=== PATIENT | female | born 1995 | race Caucasian/White ===

== ENCOUNTER 2018-03-07 02:25 | Emergency (ER) | payer OTHER ==
[~2018-03-07] VITALS: Ht 157.5 cm; Wt 52.2 kg
[2018-03-07 02:31] VITALS: BP 132/75
--- NOTE | 2018-03-07 02:36 | NUR ---
PT.AMBULATED TO ER BED 12
--- NOTE | 2018-03-07 03:00 | NUR ---
22/ CAME IN W C/O N/V X3 SINCE 2099 LAST NIGHT. DENIES ANY ABD PAIN, DIARRHEA, DENIES FEVER/CHILLS. ABD SOFT, ROUND, -TENDERNESS. PMH: EAR INFECTION, RX: CIPROFLAXACIN STARTED LAST SATURDAY
[2018-03-07] MEDS ORDERED: ONDANSETRON 4 MG ODT PO ONE ×2 (03:10→03:30)
[2018-03-07] MEDS ORDERED: DICYCLOMINE HCL LIQUID 20 MG, ALUMINUM HYD/MAG/SIMETHICONE 30 ML, LIDOCAINE VISCOUS 2% ... PO ONE ×3 (03:10)
--- NOTE | 2018-03-07 03:50 | NUR ---
NO FURTHER N/V NOTED/REPORTED
[2018-03-07 04:28] VITALS: BP 118/66
--- NOTE | 2018-03-07 04:28 | NUR ---
Patient discharged with v/s stable. Written and verbal after care instructions given and explained. Patient alert, oriented and verbalized understanding of instructions. Ambulatory with steady gait. All questions addressed prior to discharge. ID band removed. Patient advised to follow up with PMD. Rx of SETH LIRA given. Patient educated on indication of medication including possible reaction and side effects. Opportunity to ask questions provided and answered.
== END 2018-03-07 04:28 | disposition home or self-care (01) ==
LOC: MED 02:25
DX: R11.12 Projectile vomiting (principal); R10.13 Epigastric pain; J45.909 Unspecified asthma, uncomplicated
CPT/HCPCS: 81002; 81025; 99284; S0119

== ENCOUNTER 2018-03-19 22:47 | Emergency (ER) | payer OTHER ==
[~2018-03-19] VITALS: Ht 157.5 cm; Wt 54.2 kg
[2018-03-19 22:53] VITALS: BP 130/72
[2018-03-19] MEDS ORDERED: NACL 0.9% 1,000 ML IV SCH (23:31)
[2018-03-19] MEDS ORDERED: ONDANSETRON 4 MG/2 ML VIAL IVP ONE (23:35)
[2018-03-19 23:48] LABS: BASOPHILS % (AUTO) 0.4 % (0.0-2.0); EOSINOPHILS # (AUTO) 0.1 K/uL (0-0.4); EOSINOPHILS % (AUTO) 0.9 % (0.0-4.0); HEMOGLOBIN 13.7 g/dL (12.0-16.0); LYMPHOCYTES # (AUTO) 1.4 K/uL (2.5-16.5); MEAN CORPUSCULAR HEMOGLOBIN 30 pg (27-31); MEAN CORPUSCULAR HGB CONC 34 g/dL (33-37); MEAN CORPUSCULAR VOLUME 88.3 fL (80-94); MONOCYTES # (AUTO) 0.7 K/uL (0.8-1.0); MONOCYTES % (AUTO) 7.8 % (1.7-9.3); NEUTROPHILS # (AUTO) 6.7 K/uL (1.8-7.7); NEUTROPHILS % (AUTO) 74.9 % (42.2-75.2); PLATELET COUNT (AUTO) 204 K/uL (140-450); RED BLOOD CELL COUNT(AUTO) 4.65 MIL/uL (4.20-5.40); RED CELL DISTRIBUTION WIDTH 12.4 % (11.6-13.7)
[2018-03-19 23:48] LABS: APPEARANCE,URINE CLEAR (CLEAR); BILIRUBIN,URINE NEGATIVE (NEGATIVE); BLOOD, URINE TRACE-I (NEGATIVE); COLOR,URINE YELLOW (YELLOW); LEUKOCYTE ESTERASE ,URINE NEGATIVE (NEGATIVE); NITRITE, URINE NEGATIVE (NEGATIVE); PH,URINE 5.5 (5.0-9.0); UGLUCOSE NEGATIVE (NEGATIVE)
[2018-03-20 00:02] LABS: RBC,URINE 0-5 (RARE) /HPF (0-5); WBC,URINE NONE SEEN /HPF (0-5)
[2018-03-20 00:03] LABS: ALBUMIN 4.2 g/dL (3.4-5.0); ANION GAP 13.6 (8-16); CARBON DIOXIDE 25.8 mmol/L (21-32); CREATININE 0.6 mg/dL (0.6-1.3); POTASSIUM 3.4 mmol/L (3.5-5.1); TOTAL BILIRUBIN 0.3 mg/dL (0.0-1.0)
[2018-03-20 01:15] VITALS: BP 113/67
== END 2018-03-20 01:15 | disposition home or self-care (01) ==
LOC: MED 22:47
DX: N83.201 Unspecified ovarian cyst, right side (principal); R11.0 Nausea
CPT/HCPCS: 36415; 74177; 80053; 81001; 81025; 83690; 85025; 96374; 99284; J2405; Q9967; 96361; 96372

== ENCOUNTER 2024-01-10 22:20 | Emergency (ER) | payer OTHER ==
[~2024-01-10] VITALS: Ht 157.5 cm; Wt 47.2 kg
[2024-01-10 22:50] VITALS: BP 106/68; PULSE 81; RESP 20; TEMP 98.7; O2SAT 99
[2024-01-10 23:15] VITALS: BP 114/68; PULSE 75; RESP 18; O2SAT 97
[2024-01-10 23:38] LABS: APPEARANCE,URINE CLEAR (CLEAR); BILIRUBIN,URINE NEGATIVE (NEGATIVE); BLOOD, URINE 2+ (NEGATIVE); COLOR,URINE YELLOW (YELLOW); LEUKOCYTE ESTERASE ,URINE TRACE (NEGATIVE); NITRITE, URINE NEGATIVE (NEGATIVE); PROTEIN,URINE NEGATIVE (NEGATIVE); UGLUCOSE NEGATIVE (NEGATIVE); UROBILINOGEN,URINE 0.2 EU/dL (0.2 - 1)
[2024-01-10 23:55] LABS: BACTERIA,URINE 2+ /HPF (None Seen); RBC,URINE 0-5 /HPF (0-5); WBC,URINE 0-5 /HPF (0-5)
[2024-01-11] MEDS ORDERED: FAMOTIDINE 20 MG TAB ONE (01:05)
[2024-01-11] MEDS ORDERED: HYDROcodone/APAP 5/325 MG 1 TAB TAB ONE (01:06)
[2024-01-11] MEDS ORDERED: ONDANSETRON 4 MG ODT ONE (01:06)
[2024-01-11 01:11] LABS: BASOPHILS % (AUTO) 0.2 % (0.0-2.0); HEMATOCRIT 36.1 % (36-48); HEMOGLOBIN 12.3 g/dL (12.0-16.0); LYMPHOCYTES # (AUTO) 0.9 K/uL (2.5-16.5); MEAN CORPUSCULAR HEMOGLOBIN 31 pg (27-31); MEAN CORPUSCULAR HGB CONC 34 g/dL (33-37); MEAN CORPUSCULAR VOLUME 90.4 fL (80-94); MONOCYTES # (AUTO) 0.9 K/uL (0.8-1.0); MONOCYTES % (AUTO) 11.9 % (1.7-9.3); NEUTROPHILS # (AUTO) 5.4 K/uL (1.8-7.7); NEUTROPHILS % (AUTO) 74.9 % (42.2-75.2); PLATELET COUNT (AUTO) 204 K/uL (140-450); RED BLOOD CELL COUNT(AUTO) 3.99 MIL/uL (4.20-5.40); RED CELL DISTRIBUTION WIDTH 12.9 % (11.6-13.7); WHITE BLOOD COUNT (AUTO) 7.3 K/uL (4.8-10.8)
[2024-01-11] MEDS: FAMOTIDINE 20 MG TAB PO ONE (01:13)
[2024-01-11] MEDS: ONDANSETRON 4 MG ODT PO ONE (01:15)
[2024-01-11] MEDS: HYDROcodone/APAP 5/325 MG 1 TAB TAB PO ONE (01:15)
[2024-01-11 01:30] LABS: ALBUMIN 3.4 g/dL (3.4-5.0); ANION GAP 9.4 (8-16); CALCIUM 9.1 mg/dL (8.5-10.1); CARBON DIOXIDE 27.5 mmol/L (21-32); CREATININE 0.5 mg/dL (0.6-1.3); POTASSIUM 3.9 mmol/L (3.5-5.1); TOTAL BILIRUBIN 0.5 mg/dL (0.0-1.0); TOTAL PROTEIN, SERUM 7.6 g/dL (6.4-8.2)
[2024-01-11] MEDS ORDERED: ONDA-188 PO (03:23)
[2024-01-11] MEDS ORDERED: FAMO-90 PO (03:23)
[2024-01-11] MEDS ORDERED: SENN-74 PO (03:23)
[2024-01-11] MEDS ORDERED: ACET-10509 PO (03:23)
[2024-01-11] MEDS ORDERED: DOCU-299 PO (03:23)
== END 2024-01-11 03:35 | disposition home or self-care (01) ==
LOC: MED 22:20
DX: G89.18 Other acute postprocedural pain (principal); R10.13 Epigastric pain; R10.11 Right upper quadrant pain; R11.2 Nausea with vomiting, unspecified; K21.9 Gastro-esophageal reflux disease without esophagitis; Z90.49 Acquired absence of other specified parts of digestive tract
CPT/HCPCS: 36415; 80053; 81001; 81025; 83690; 85025; 87086; 99284; Q0162